=== PATIENT | female | born 1985 | race African-American/Black ===

== ENCOUNTER 2016-12-18 15:00 | Emergency (ER) | payer OTHER ==
[~2016-12-18] VITALS: Ht 172.7 cm; Wt 74.8 kg
[2016-12-18 15:22] VITALS: BP 120/74
== END 2016-12-18 16:11 | disposition home or self-care (01) ==
LOC: ER 15:00
DX: J45.909 Unspecified asthma, uncomplicated (principal); Z76.0 Encounter for issue of repeat prescription